=== PATIENT | male | born 2000 | race Caucasian/White ===

== ENCOUNTER 2020-03-09 07:03 | Outpatient (REF) | payer OTHER, SELFPAY ==
[2020-03-09 07:47] LABS: COVID-19 Test Negative (Negative)
== END 2020-03-09 07:04 | disposition home or self-care (01) ==
LOC: HO.EMPCOV 07:03
PROVIDERS: Visit Provider Internal Medicine
DX: Z20.828 Contact with and (suspected) exposure to other viral communicable diseases (principal)
CPT/HCPCS: 87635; C9803

== ENCOUNTER 2020-03-18 14:31 | Outpatient (REF) | payer OTHER, SELFPAY ==
[2020-03-18 15:07] LABS: COVID-19 Test Negative (Negative)
== END 2020-03-18 14:32 | disposition home or self-care (01) ==
LOC: HO.EMPCOV 14:31
PROVIDERS: Visit Provider Internal Medicine
DX: Z20.828 Contact with and (suspected) exposure to other viral communicable diseases (principal)
CPT/HCPCS: 87635; C9803

== ENCOUNTER 2020-05-30 09:42 | Outpatient (REF) | payer OTHER, SELFPAY ==
[2020-05-30 10:02] LABS: COVID-19 Test Negative (Negative)
== END 2020-05-30 09:43 | disposition home or self-care (01) ==
LOC: HO.EMPCOV 09:42
PROVIDERS: Visit Provider Internal Medicine
DX: Z20.822 Contact with and (suspected) exposure to COVID-19 (principal)
CPT/HCPCS: 36415; 87635; C9803

== ENCOUNTER 2020-07-21 10:00 | Outpatient (REF) | payer OTHER, SELFPAY ==
[2020-07-21 10:34] LABS: COVID-19 Test Negative (Negative)
== END 2020-07-21 10:01 | disposition home or self-care (01) ==
LOC: HO.LAB 10:00
PROVIDERS: Visit Provider Internal Medicine
DX: Z20.822 Contact with and (suspected) exposure to COVID-19 (principal)
CPT/HCPCS: 36415; 87635; C9803

== ENCOUNTER 2021-06-30 08:40 | Outpatient (REF) | payer MEDICAID, SELFPAY ==
--- NOTE | ~2021-06-30 | FL_ITS ---
EXAMINATION: FL BARIUM SWALLOW CLINICAL INFORMATION: Dysphagia. COMPARISON: None TECHNIQUE: Barium swallow examination is performed using fluoroscopic evaluation in addition to multiple fluoroscopic spot views. The patient is imaged both upright and prone and using both thick and thin sulfate along with effervescent granules. Fluoroscopy time: 1.9 minutes DAP: 5.680 Gycm2 Images: 48 FINDINGS: Following oral administration of thick barium and barium-coated turkey in upright view there is normal propagation of bolus from the oral cavity through the pharynx, esophagus into stomach without any obstruction or narrowing. Patient has mild dextroscoliosis of mid dorsal spine and levoscoliosis of cervicothoracic junction. There is mild indentation of the right lateral cervical esophageal wall in the cervicothoracic junction on several images following thick barium. Question intramural lesion or an extrinsic compression. This finding was not seen with solid food. On placing patient prone and oral administration of thin barium, there is good distention of the entire cervical and thoracic esophagus with no intraluminal filling defects seen. There is no stricture or narrowing. There is no gastroesophageal reflux or hiatal hernia in supine position. FL/FL barium swallow IMPRESSION: 1. Mild dextroscoliosis of dorsal spine and mild levoscoliosis of cervical thoracic spine. 2. Mild filling defect of the right lateral cervical esophageal wall at the cervicothoracic junction. Question intramural lesion or extrinsic indentation from underlying lesion. There is no obstruction seen with solids or liquids.
== END 2021-06-30 08:41 | disposition home or self-care (01) ==
LOC: HO.XRAY 08:40
PROVIDERS: PCP Nurse Practitioner Primary Care; Visit Provider Internal Medicine Gastroenterology
DX: R13.10 Dysphagia, unspecified (principal)
CPT/HCPCS: 74220

== ENCOUNTER 2021-08-08 06:50 | Day surgery (SDC) | payer MEDICAID, SELFPAY ==
[2021-08-01 14:48] VITALS: BMI 30.5
--- NOTE | 2021-08-07 11:47 | HO.ANESPROP2 ---
HPI - Anesthesia Eval Consult details Narrative: 21yo M for Upper Endoscopy PMFSH Active Problems Active Problems: All Active Problems (Updated 05/10/20 @ 14:38 by Jazmyne Bates MD) Overweight (Acute) Past Medical History Medical History (Updated 08/08/21 @ 07:11 by Dara Mota, GEOFFREY) HTN (hypertension) Overweight Family History Family History Mother No problems noted. Father No problems noted. Surgical History Surgical History (Updated 08/01/21 @ 14:49 by Manisha Conley RN) No pertinent past surgical history Social History Social History Alcohol intake: current Alcohol intake frequency: a few times a month Patient Tobacco Use Status: Never used Tobacco Use of substances other than those prescribed or required for medical reasons: Yes Are you DNR?: No Advance Directives: No Advance Directives Information Provided: Yes Meds Allergies Allergy/AdvReac Type Severity Reaction Status Date / Time No Known Allergies Allergy Verified 05/10/20 14:29 Home Medications Medication Instructions Recorded Confirmed Last Taken Type lisinopril 10 1 tab PO DAILY 08/08/21 08/08/21 Unknown History mg-hydrochlorothiazide 12.5 mg tablet Exam Exam Date and Time: August 07, 2021 1147 Height,Weight and Vital Signs: Height 5 ft 7 in Weight 88.451 kg Assessment and Plan Assessment Anesthesia Assessment: Chart Reviewed
[2021-08-08 07:14] VITALS: BP 132/79; PULSE 66; RESP 16; TEMP 36.2; O2SAT 100
[2021-08-08] MEDS: Lactated Ringers 1,000 ML 100 ML IVCONT (07:21)
--- NOTE | 2021-08-08 07:57 | P.CONAN_ITS ---
FORMERLY [facility] Active Problems Active Problems: All Active Problems (Updated 08/08/21 @ 07:11 by Dara Mota, GEOFFREY) Overweight (Acute) Past Medical History Medical History (Updated 08/08/21 @ 07:11 by Dara Mota RN) HTN (hypertension) Overweight Family History Family History Mother No problems noted. Father No problems noted. Family history of problems with anesthesia: No Surgical History Surgical History (Updated 08/01/21 @ 14:49 by Manisha Conley RN) No pertinent past surgical history History of Problems with Anesthesia: No Social History Social History Alcohol intake: current Alcohol intake frequency: a few times a month Patient Tobacco Use Status: Never used Tobacco Use of substances other than those prescribed or required for medical reasons: Yes Are you DNR?: No Advance Directives: No Advance Directives Information Provided: Yes Meds Allergies Allergy/AdvReac Type Severity Reaction Status Date / Time No Known Allergies Allergy Verified 05/10/20 14:29 Active Medications: Current Medications Lactated Ringer's (Lr) 1,000 mls @ 100 mls/hr IVCONT .Q10H DAT Last Admin: 08/08/21 07:21 Dose: 100 mls/hr Documented by: Home Medications Medication Instructions Recorded Confirmed Last Taken Type lisinopril 10 1 tab PO DAILY 08/08/21 08/08/21 Unknown History mg-hydrochlorothiazide 12.5 mg tablet Exam Exam Date and Time: August 08, 2021 0757 Height,Weight and Vital Signs: Height 5 ft 7 in Weight 88.451 kg Last Vital Signs Temp 97.2 F 08/08/21 07:14 Pulse 66 08/08/21 07:14 Resp 16 08/08/21 07:14 BP 132/79 08/08/21 07:14 Pulse Ox 100 08/08/21 07:14 Airway Mallampati Class: I TM Dist: >3cm Neck ROM: Full Assessment and Plan Assessment Anesthesia Assessment: Anesthesia Plan Discussed and Chart Reviewed Final Anesthetic Review Family History of Problems with Anesthesia: No History of Problems with Anesthesia: No NPO: Yes ASA Class: I and II Final Preanesthetic Review: No Changes in Pt Med Stat, Meds/Allgs Chart Reviewed, Consent Obtained/Reviewed and Anes Risks/Benef Reviewed Patient Risk: Low Procedure Risk: Low Anesthetic Plan Anesthetic Plan: MAC: Disposition: Standard PACU
--- NOTE | 2021-08-08 08:15 | MHC.SHP ---
Pre-Procedural Eval Section A Date of Service: 08/08/21 Section B Chief Complaint: abnormal findings Details of Present Illness: see H & P no changes Relevant Family History (Specify if Yes): No Relevant Social History: None Present Medications: see Short Stay Collaborative assessment Medical History: No relevant PMH History of Previous Operations: No relevant previous surgery Allergies: Allergies Allergy/AdvReac Type Severity Reaction Status Date / Time No Known Allergies Allergy Verified 05/10/20 14:29 Review of Systems Sugical H&P ROS: Negative: Constitution, Cardiovascular, Respiratory, Neurological, Psychiatric, Hem-Onc, Allergic/Immunologic, Gastrointestinal, Genitourinary, Musculoskeletal, Integumentary, Endocrine and Eyes/Ears/Nose/Throat Exam Surgical H&P Exam: Normal: HEENT, Normal: Heart, Normal: Lungs, Normal: Extremities, Normal: Abdomen, Normal: Skin and Normal: Neurological Plan I have reviewed the history and physical and performed a pertinent physical examination on my patient. No changes have occurred unless specified.
[2021-08-08 08:38] VITALS: BP 89/37; PULSE 67; RESP 16; TEMP 36.2; O2SAT 98
--- NOTE | 2021-08-08 08:44 | PM.OP ---
Brief Operative Note Date of Service: 08/08/21 Pre-op diagnosis: abnl xray gi tract Post-op diagnosis: same Procedure: upper endoscopy Surgeon: Aayush Prado Anesthesia: MAC Was an Software Licensing Analyst used for this Procedure?: No Estimated blood loss (mL): 5 Pathology: other (see req) Condition: stable Disposition: PACU
[2021-08-08 08:53] VITALS: BP 88/39; PULSE 61; RESP 16; O2SAT 98
[2021-08-08 09:21] VITALS: BP 104/50; PULSE 70; RESP 16; TEMP 36.1; O2SAT 98
--- NOTE | 2021-08-08 20:44 | OP_ITS ---
SURGEON: Aayush Prado MD INDICATIONS: Dysphagia and abnormal barium swallow. PREOPERATIVE DIAGNOSIS: POSTOPERATIVE DIAGNOSIS: PROCEDURE PERFORMED: Upper endoscopy with biopsy. ESTIMATED BLOOD LOSS: COMPLICATIONS: ANESTHESIA: ASSISTANTS: SPECIMENS: MEDICATIONS: Monitored anesthesia care. PROCEDURE DESCRIPTION: A history and physical were performed. The risks and benefits of the procedure were explained to the patient. Informed consent was obtained and the patient was placed in the left lateral decubitus position. The Olympus video gastroscope was introduced into the esophagus, stomach, and duodenum. Examination was performed. The scope was removed. He tolerated the procedure well and was taken to recovery area in stable condition. FINDINGS: Esophagus: The esophagus was normal. There was no mass lesion in the upper esophagus. The mucosa appeared normal. Biopsies were obtained from the EG junction. There was no esophagitis. Stomach: The stomach showed no evidence of masses, ulcers, or polyps. Antral biopsies were obtained to rule out H pylori. Duodenum: The bulb and second portion were normal. IMPRESSION: Normal upper endoscopy. RECOMMENDATION: Follow up the biopsy results. MD KATHLEEN Resendiz/MODL / [id number] MTDD
== END 2021-08-08 09:50 | disposition home or self-care (01) ==
PROVIDERS: PCP Nurse Practitioner Primary Care; Visit Provider Internal Medicine Gastroenterology
PROC: 0DJ08ZZ Inspection of Upper Intestinal Tract, Via Natural or Artificial Opening Endoscopic (ICD-10-PCS; CPT 43235; principal; 2021-08-08 08:10)
DX: R13.12 Dysphagia, oropharyngeal phase (principal); R93.3 Abnormal findings on diagnostic imaging of other parts of digestive tract; I10 Essential (primary) hypertension; E66.3 Overweight; Z68.30 Body mass index [BMI] 30.0-30.9, adult; Z79.899 Other long term (current) drug therapy
CPT/HCPCS: 43239; 88305; 88342; J2250

== ENCOUNTER → 2022-01-17 09:28 | Outpatient (RCR) | payer OTHER, SELFPAY ==
[2020-02-10 06:23] LABS: COVID-19 Test Negative (Negative)
[2020-02-15 08:07] LABS: COVID-19 Test Negative (Negative)
[2020-02-27 10:26] LABS: COVID-19 Test Positive (Negative)
[2020-04-04 13:05] LABS: COVID-19 Test Negative (Negative)
[2020-04-22 11:05] LABS: SARS-COV-2 PCR UMBRL NEGATIVE
== END | disposition home or self-care (01) ==
LOC: HO.EMPCOV 02-10 06:03
PROVIDERS: Visit Provider Internal Medicine
DX: Z20.828 Contact with and (suspected) exposure to other viral communicable diseases (principal)
CPT/HCPCS: 36415; 87635; C9803; U0003